=== PATIENT | male | born 1960 | race Caucasian/White ===

== ENCOUNTER 2017-07-05 12:29 | Inpatient (IN) | payer OTHER ==
[2017-07-05] MEDS ORDERED: Morphine 4 MG/ML VIAL ONE ×2 (13:23→16:32)
[2017-07-05 13:30] LABS: #Basophils 0.1 thou/uL (0.0-0.2); #Eosinphils 0.2 thou/uL (0.0-0.7); #Lymphocytes 1.3 thou/uL (1.20-3.40); #Monocytes 0.4 thou/uL (0.11-0.59); #Neutrophils 4.1 thou/uL (1.40-6.50); %Basophils 0.8 % (0.0-1.0); %Eosinophils 3.3 % (0.0-10.0); %Lymphocytes 21.8 % (21.0-51.0); Hematocrit 58.9 % (42.0-52.0); Mean Platelet Volume 9.2 fL (7.4-10.4); Red Blood Cell (RBC) Count 5.64 mill/uL (4.70-6.10); White Blood Cell (WBC) Count 6.1 thou/uL (4.8-10.8)
--- NOTE | 2017-07-05 13:55 | ULT ---
GALLBLADDER ULTRASOUND: CLINICAL HISTORY: Pain. FINDINGS: No focal hepatic lesion is seen. There is mild increased echogenicity in the gallbladder lumen. Gal lbladder wall is thickened at 4 mm. Swann's sign reported as negative by the tribal council member. There is dilatation of the common duct at 11 mm. There is subtle increased echogenicity that may relate to c holedocholithiasis. Incidental note of right renal cyst. IMPRESSION: 1. Suggestion of choledocholithiasis with associated biliary ductal dilatation. 2. Gallbladder wall prominence, although the gallbladder is partially contracted. There are low lev el echoes of the gallbladder lumen which could be on the basis of gallbladder sludge. POS: [facility]
[2017-07-05 13:56] LABS: ALT (SGPT) 47 U/L (8-55); AST (SGOT) 26 U/L (5-34); Alkaline Phosphatase 122 U/L (40-150); Anion Gap 8 mmol/L (10-20); BUN (Urea Nitrogen) 12 mg/dL (8.4-25.7); Bilirubin, Total 0.4 mg/dL (0.2-1.2); Calc. Creatinine Clearance 0 mL/min (70-130); Calcium 9.7 mg/dL (7.8-10.44); Carbon Dioxide 29 mmol/L (22-29); Chloride 98 mmol/L (98-107); Estimated GFR-MDRD Greater than 90; Globulin 3.2 g/dL (2.4-3.5); Lipase 220 U/L (8-78)
[2017-07-05] MEDS ORDERED: Levofloxacin 500 mg/D5W 100 ml Premix Bag ONE (14:23)
[2017-07-05] MEDS ORDERED: Propofol 200 MG/20 ML VIAL ONE (15:20)
[2017-07-05] MEDS ORDERED: Succinylcholine Chloride 20 MG/ML 10 ml SYRINGE FS ONE (15:20)
[2017-07-05] MEDS ORDERED: Metoprolol Tartrate 5 MG/5 ML VIAL ONE (15:20)
[2017-07-05] MEDS ORDERED: Metoclopramide HCl 10 MG/2 ML VIAL ONE (15:20)
[2017-07-05] MEDS ORDERED: Dexamethasone 20 MG/5 ML VIAL ONE (15:20)
[2017-07-05] MEDS ORDERED: Lidocaine 1% PF 5 ML VIAL ONE (15:20)
[2017-07-05] MEDS ORDERED: Esmolol 100 MG/10 ML VIAL ONE (15:20)
[2017-07-05] MEDS ORDERED: ePHEDrine/0.9% NaCl/PF SYRINGE 50 mg/10 ml ONE (15:20)
[2017-07-05] MEDS ORDERED: diphenhydrAMINE 50 MG/ML VIAL ONE (17:44)
[2017-07-05] MEDS ORDERED: Fentanyl 100 MCG/2 ML VIAL ONE ×2 (17:57)
[2017-07-05] MEDS ORDERED: Iothalamate Meglumine 60% 50 ML VIAL FS ONE (18:03)
[2017-07-05] MEDS ORDERED: Bupivacaine/Epinephrine 0.25% 30 ML VIAL ONE (18:03)
[2017-07-05] MEDS ORDERED: Ketorolac Tromethamine 30 MG/ML VIAL ONE (18:22)
--- NOTE | 2017-07-05 18:28 | HP ---
HISTORY OF PRESENT ILLNESS: Clive Freeman is a 56-year-old male patient whose I performed lapar oscopic gastric band 10 years ago, and she has lost over 100 pounds. The patient presents with 2-wee k history of abdominal pain, nausea, and vomiting, although last three days, pain has subsided and vo miting resolved. He saw a middleware systems architect yesterday who examined him, ordered a CAT scan and labs , then told him to go to the emergency room. He obtained his CAT scan of the abdomen and pelvis in [facility]. This demonstrated 4 cm pseudocyst one near the pancreas and 8 mm pseudocyst in the other H e presented and evaluated by Dr. Modesto Montoya at [facility] today and ultrasound revealed com mon bile duct 11 mm and cholelithiasis. He had sludge. His liver function tests, however, normal. Lipase 220. Basic metabolic profile was normal. He has received 1 liter of IV fluids and saline loc k. His hemoglobin was noted to be very hemoconcentrated 19. ALLERGIES: None. SOCIAL HISTORY: Tobacco one to one and a half pack per day. Alcohol none for 3 months, alcoholism p rior to that. MEDICATIONS: None. PAST SURGICAL HISTORY: Nasal polyps, never has had a colonoscopy. PAST MEDICAL HISTORY: Noncontributory. In [place], he had a cardiac stress test 3 years ago that w as normal; 10 years ago, he had a cardiac catheterization revealed a minimal disease and no followup recommended. REVIEW OF SYSTEMS: Ten point noncontributory. No cardiac symptoms. Never has had a colonoscopy. SOCIAL HISTORY: The patient is a mechanic welder. He has had some abdominal discomfort months and years past because of his alcoholism. PHYSICAL EXAMINATION: VITAL SIGNS: A 68 kilograms, 134/89, 75, 16, 97.4 degrees. HEENT: Unremarkable. SKIN: Nonjaundiced. LUNGS: Clear to auscultation, no wheezing. CARDIAC: Regular rate and rhythm. ABDOMEN: Soft, nondistended, minimal tenderness, no hernias. EXTREMITIES: No ankle edema, no lymphadenopathy, neck, axillae or groins neurologically intact. LABORATORY DATA: White count 6, hemoglobin 19. Sodium 130, potassium 5.1, BUN 12, creatinine 0.78, bilirubin 0.4, AST and ALT 26 and 47 respectively, alkaline phosphatase 122, lipase 220. ASSESSMENT AND PLAN: 1. Biliary pancreatitis, resolving pancreatitis. We would recommend continued aggressive hydration, laparoscopic video cholecystectomy and intraoperative cholangiograms. Risks of infection, bleeding, visceral and biliary injury, possibly the open procedure discussed, possibility of need for ERCP and Gastroenterology consultation discussed, but with normal liver function test despite common bile bridget t 11 mm. We would perform the cholangiogram first. 2. History of alcoholism, 3 months over. 3. Tobacco abuse one and a half packs per day. 4. Negative cardiac workup 10 years ago, cardiac stress test and cardiac catheterization respectfull y.
[2017-07-05] MEDS ORDERED: hydrALAZINE 20 MG/ML VIAL SLOW IVP PRN (18:38)
[2017-07-05] MEDS ORDERED: Dextrose 5% in Water 1,000 ML IV PRN (18:38)
[2017-07-05] MEDS ORDERED: Morphine 4 MG/ML VIAL SLOW IVP PRN ×2 (18:38)
[2017-07-05] MEDS ORDERED: Dextrose 50% Abboject 50 ML SYRINGE SLOW IVP PRN (18:38)
[2017-07-05] MEDS ORDERED: Ibuprofen 600 MG TAB PO PRN (18:42)
[2017-07-05] MEDS ORDERED: Acetaminophen 1,000 MG in Premix Bag 1 BAG IVPB PRN (18:42)
[2017-07-05] MEDS ORDERED: Ketorolac Tromethamine 30 MG/ML VIAL IVP PRN (18:42)
[2017-07-05] MEDS ORDERED: traMADol HCl 50 MG TAB PO PRN ×2 (18:42)
[2017-07-05] MEDS ORDERED: Nitroglycerin 2% Ointment 1 INCH/1 GM Packet ONE (19:05)
[2017-07-05] MEDS ORDERED: Promethazine HCl 25 MG/ML VIAL SLOW IVP PRN (19:17)
[2017-07-05] MEDS ORDERED: Promethazine HCl 25 MG/ML VIAL IM PRN (19:17)
[2017-07-05] MEDS ORDERED: Ondansetron HCl/PF 4 MG/2 ML Vial IVP PRN (19:17)
[2017-07-05] MEDS ORDERED: Meperidine HCl/PF 25 MG/ML VIAL SLOW IVP PRN (19:17)
[2017-07-05] MEDS ORDERED: HYDROmorphone 2 MG/ML VIAL SLOW IVP PRN (19:17)
[2017-07-05] MEDS ORDERED: SUGAMMADEX SODIUM 200 MG/2 ML VIAL ONE (19:37)
[2017-07-05] MEDS: Famotidine 20 MG TAB PO SCH (21:21)
[2017-07-05] MEDS: Ondansetron ODT 4 MG TAB PO PRN (21:21)
--- NOTE | 2017-07-05 22:13 | OP ---
DATE OF PROCEDURE: 07/05/2017 PREOPERATIVE DIAGNOSES: Biliary pancreatitis, cholelithiasis and dehydration. POSTOPERATIVE DIAGNOSES: Biliary pancreatitis, cholelithiasis and dehydration. PROCEDURES PERFORMED: Laparoscopic video cholecystectomy, normal intraoperative cholangiogram using fluoroscopy, dilated common bile duct without filling defects, free flow into the duodenum. SURGEON: Dr. Ruff. ANESTHESIA: General. Local 0.5% Marcaine with epinephrine, 30 mL. PROCEDURE IN DETAIL: The patient was taken to the operating room where under general anesthesia, abd omen was clipped of hair, prepared with chloraprep, draped in routine fashion. Local anesthetic infi ltrated into skin and subcutaneous tissue about each port site. Infraumbilical incision made and pne umoperitoneum to 15 mmHg obtained with the Veress needle, replacing it with a 5 port and video laparo scope inserted. Right lateral subcostal incision made and 11 port placed. Right subcostal incision made mid clavicular anterior axillary lines and 5 ports placed. Liver appeared to be normal. Gallbl adder wall was slightly thickened and surrounded with omentum. The omentum was taken down with the c autery, identifying the fundus, grasped and reflected cephalad. Infundibulum dissected free, grasped and reflected laterally. Cystic artery and duct dissected free. Critical view obtained with perich olecystic dissection two-thirds of cystic plate and cystic artery double clipped proximally. Cystic duct singly clipped on the gallbladder side. Opening made in the cystic duct and cholangiocath inser ruben and cholangiogram was obtained using fluoroscopy. Contrast flowed freely into the duodenum witho ut filling defects and dilated common hepatic, common bile, left and right hepatic ducts. Cholangioc ath removed. Cystic duct stump doubly clipped and cystic artery and duct divided and gallbladder dis sected free from the liver bed obtaining good hemostasis with the cautery. Gallbladder and contents stones removed and submitted to Pathology. Good hemostasis obtained with the cautery. Surgicel appl ied. The patient tolerated the procedure well.
[2017-07-05 22:23] VITALS: BMI 20.5
[2017-07-05] MEDS: Sodium Chloride 0.9% 1,000 ML IV SCH (22:47)
[2017-07-06] MEDS: Sodium Chloride 0.9% 1,000 ML IV SCH ×2 (05:22→08:27)
[2017-07-06 05:35] LABS: #Lymphocytes 0.6 thou/uL (1.20-3.40); #Monocytes 0.1 thou/uL (0.11-0.59); #Neutrophils 4.5 thou/uL (1.40-6.50); %Basophils 0.1 % (0.0-1.0); %Eosinophils 0.1 % (0.0-10.0); %Lymphocytes 11.2 % (21.0-51.0); %Monocytes 2.2 % (0.0-10.0); Hematocrit 51.7 % (42.0-52.0); Mean Platelet Volume 9.7 fL (7.4-10.4); Red Blood Cell (RBC) Count 4.96 mill/uL (4.70-6.10); White Blood Cell (WBC) Count 5.2 thou/uL (4.8-10.8)
[2017-07-06 06:05] LABS: ALT (SGPT) 56 U/L (8-55); AST (SGOT) 78 U/L (5-34); Alkaline Phosphatase 99 U/L (40-150); Anion Gap 12 mmol/L (10-20); BUN (Urea Nitrogen) 9 mg/dL (8.4-25.7); Bilirubin, Total 0.5 mg/dL (0.2-1.2); Calc. Creatinine Clearance 116 mL/min (70-130); Calcium 8.9 mg/dL (7.8-10.44); Carbon Dioxide 24 mmol/L (22-29); Chloride 100 mmol/L (98-107); Estimated GFR-MDRD Greater than 90; Globulin 2.6 g/dL (2.4-3.5); Lipase 121 U/L (8-78); Protein, Total 5.6 g/dL (6.0-8.3)
[2017-07-06] MEDS: Famotidine 20 MG TAB PO SCH (08:29)
[2017-07-06] MEDS ORDERED: Enoxaparin Sodium 40 MG/0.4 ML SYRINGE SC SCH (09:00)
--- NOTE | 2017-07-06 10:03 | RAD ---
OPERATIVE CHOLANGIOGRAM: A single image from OR taken during operative cholangiogram is presented. HISTORY: Intraoperative imaging during cholecystectomy procedure and with intraoperative cholangiogram. FINDINGS/IMPRESSION: The common duct is opacified. Spill was seen into the duodenum. No filling defect identified. POS: [facility]
--- NOTE | 2017-07-06 11:16 | RAD ---
TWO VIEW CHEST: HISTORY: COPD. FINDINGS: Mild atelectatic change in the bases. The lung burns otherwise appear clear. Heart and mediastinum unremarkable. There is evidence of free intraperitoneal air. The patient is recently postop cholecystectomy which would explain this finding. IMPRESSION: No acute process. POS: [facility]
[2017-07-06 11:36] VITALS: BP 139/76; TEMP 97.3
[2017-07-06] MEDS: Ondansetron ODT 4 MG TAB PO PRN (11:37)
--- NOTE | 2017-07-06 14:03 | PRG ---
DATE OF SERVICE: 07/06/2017 SUBJECTIVE: Mr. Freeman is doing well after laparoscopic cholecystectomy yesterday. He is toleratin g his diet. He has had some mild nausea, but able to eat a full morning breakfast. He has been ambu lating well. PHYSICAL EXAMINATION: VITAL SIGNS: Temperature 97.3, pulse 65, respiratory rate 16, blood pressure 139/76. HEAD, EARS, EYES, NOSE, AND THROAT: Unremarkable. LUNGS: Clear to auscultation. CARDIAC: Regular rate and rhythm without murmur or gallop. ABDOMEN: Soft, nontender. Laparoscopic incisions look good without infection or problems. LABORATORY: White count 5, hemoglobin 16. Liver function tests essentially normal, bilirubin 0.5, l ipase down from 220 to 121 this morning, sodium 131. ASSESSMENT AND PLAN: The patient is doing well post-cholecystectomy and cholangiogram is normal. He has pseudocyst. He will follow up in my office in 2-3 weeks. He will take ibuprofen and Tylenol fo r any pain. Ultram as needed. Diet and activity as tolerated. No weight-lifting restrictions.
--- NOTE | 2017-07-06 18:14 | DIS ---
DATE OF ADMISSION: 07/05/2017 DATE OF DISCHARGE: 06/26/2017 Clive Freeman is a 56-year-old male, three months alcohol free, history of alcoholism, admitted 07/05, discharge 07/06/2017. He has a history of tobacco abuse 1-1/2 packs per day and he has been a lcohol free for 3 months. He was admitted. He was seen in the emergency room for abdominal pain, tr ansferred from [place], he saw a managed care liaison as an outpatient for his 2-week history of const ant abdominal pain, nausea and vomiting, sent for a CAT scan. CAT scan demonstrating in [place] 4 c m pseudocyst and adjacent smaller pseudocyst gallstones and changes of pancreatitis. He reported to the emergency room of and noted to have a lipase of 220. His liver function tests were normal. Ultrasound revealed gallstones, dilated bile ducts. He was taken for laparoscopic cholecystectomy, n ormal cholangiograms postoperatively tolerated, convalesced, tolerated his diet, and he is being disc harged home at this time to resume his home medications, Ultram #20 as needed for breakthrough pain o antonio Tylenol, Motrin. Resume home medications which he was not taking. We will follow up his pseudoc yst as an outpatient. This could be secondary to past history of alcoholism, less likely result of h is current episode of pancreatitis, but possibly he has Zofran at home. Diet and activity as tolerat ed without restrictions.
== END 2017-07-06 14:15 | disposition home or self-care (01) | DRG 418 ==
LOC: ERS 12:29 → SDC 17:23 → SURG A 20:35
PROVIDERS: ADMIT Specialist; ATTEND Specialist
PROC: 0FT44ZZ Resection of Gallbladder, Percutaneous Endoscopic Approach (ICD-10-PCS; principal; 2017-07-05)
PROC: BF100ZZ Fluoroscopy of Bile Ducts using High Osmolar Contrast (ICD-10-PCS; 2017-07-05)
DX: K85.10 Biliary acute pancreatitis without necrosis or infection (principal); K86.3 Pseudocyst of pancreas; E86.0 Dehydration; K80.20 Calculus of gallbladder without cholecystitis without obstruction; F17.210 Nicotine dependence, cigarettes, uncomplicated; F10.20 Alcohol dependence, uncomplicated
CPT/HCPCS: 36415; 47532; 71020; 76705; 80053; 83690; 85025; 86850; 86900; 86901; 93005; J0131; J1100; J1200; J1610; J1650; J1885; J1956; J2001; J2270; J2704; J2765; J3010; J7620; Q0162; Q9961